=== PATIENT | male | born 1945 | race Caucasian/White ===

== ENCOUNTER 2017-01-25 10:59 | Inpatient (IN) ==
[2017-01-25 13:27] LABS: Basophils # 0.1 10*3/uL (0.0-0.2); Basophils % 0.6 % (0.0-0.8); Eosinophils # 1.3 10*3/uL (0.0-0.87); Eosinophils % 11.8 % (0.00-10.9); Hematocrit 46.1 VOL% (42.0-52.0); Hemoglobin 15.6 GM/DL (14.0-18.0); Immature Granulocytes % 0.3 %; Immature Granulocytes Absolute 0.03 #; Lymphocytes # 2.6 10*3/uL (1.4-4.0); Lymphocytes % 24.4 % (21.2-54.2); Mean Corpuscular HGB Conc 33.8 GM/DL (32-36); Mean Corpuscular Hemoglobin 30 PG (27-34); Mean Corpuscular Volume 89.5 FL (87-102); Monocytes # 0.8 10*3/uL (0.11-0.8); Monocytes % 7.1 % (1.7-12.7); Neutrophils % 55.8 % (38.7-73.9); Platelet Count 244 T/CUMM (130-400); Red Blood Count 5.15 MC/CUMM (3.8-5.5); Red Cell Distribution Width 13.3 % (9.3-17.3); White Blood Count 10.7 T/CUMM (4-12)
--- NOTE | 2017-01-25 13:32 | Hospitalist History & Physical ---
<Peyton Hanks - Last Filed: 01/25/17 13:22> Assessment and Plan - Time spent with patient Time spent with patient: Greater than 30 minutes (1) COPD exacerbation Status: Acute Assessment and plan: Admit 01/25/17 to monitored bed start IV antibiotics start duonebs IV steroids blood culture sputum culture urinalysis Current Visit: Yes (2) Shortness of breath Status: Acute Current Visit: Yes History of Present Illness Chief complaint: shortness of breath History of present illness: Mr. Polanco is a 71 year old white male w/PMHx COPD, Asthma, IA (15 y/ago), A-fib , Thyroid disease presented to [facility] from Lorene Weathers, [facility] for further evaluation of worsening shortness of breath, wheezing, and cough. He reports productive cough of white, yellow tinged sputum. Denies fever, chills, nausea, or vomiting. He reports shortness of breath started and got much worse this weekend. He reports quit smoking 40 years ago, he continues to dip tobacco (1 can per 2 weeks), occasional alcohol intake. He had surgery 2 weeks ago in [place] with Dr Lui for left eye Retina. PCP: Lorene Weathers NP Denture Contour Wire Specialist: Sr Navarro He takes Flu vaccine yearly. He is directly admitted to [address] [place] [address] on monitored bed for further evaluation of shortness of breath. Home medications to be reviewed and reconciliation to follow. Home Medications Medication Instructions Recorded Confirmed Type Aspirin EC Tab 81 mg PO DAILY #30 tablet 08/16/15 01/25/17 Rx Albuterol Sulfate [Proair HFA] 2 puff INH Q6H PRN 01/25/17 01/25/17 History Azelastine HCl [Azelastine 0.15% 1 spray BOTH NARES BID 01/25/17 01/25/17 History Nasal [place]] Cyanocobalamin Tab [Vitamin B12 1,000 mcg PO DAILY 01/25/17 01/25/17 History Tab] Fluticasone Propionate [Flonase 1 spray BOTH NARES BID 01/25/17 01/25/17 History Allergy Relief] Levothyroxine Tab [Synthroid Tab] 25 mcg PO DAILY@0700 01/25/17 01/25/17 History Nitroglycerin [Nitroglycerin SL 0.4 mg SL Q5M PRN 01/25/17 01/25/17 History Tab] Sotalol [Betapace] 80 mg PO BID 01/25/17 01/25/17 History Umeclidinium [place] [Incruse 1 puff INH DAILY 01/25/17 01/25/17 History Ellipta] Allergies Allergy/AdvReac Type Severity Reaction Status Date / Time No Known Allergies Allergy Verified 07/20/16 15:01 Medical,Surgical,& Family Hx - Medical History Cardio: History of: Cardiac Dysrhythmia (2016 diagnosed paroxysmal atrial fibrillation), CAD, Hypertension (Off Meds), IA (15 yrs ago), Cardiovascular Problems (Dr. Navarro) Neurology: No history of: Seizures HEENT: History of: Eye Problem (Cataracts/Glasses (had surgery on Retina (left) 2 weeks ago in [place])), Dental Problems (Full Set Dentures), HEENT Problems ( Sinus Infection Usually Yearly) No history of: Ear Problem Endocrine: History of: Dyslipidemia (Off Meds), Thyroid Disorder (SYNTHROID) Rheumatology: No history of;: Psoriasis, Systemic Lupus Erythematosus Respiratory: No history of: Pneumonia (Hx Pneum Vac), Respiratory Problems (No Flu Vac 2015) Musculoskeletal: History of: Back/Neck Problems, Musculoskeletal Problems (NECK FX 1991-Can't Turn Head Very Far) Hematology: No history of: Blood Transfusion Reaction Other: No history of: Anesthesia Reactions, Anaphylaxis, Cancer, Eczema, HIV, MRSA, Skin Problems - Surgical History Cardiac Surgeries: Sugical HX of: Cardiac Catheterization (3 years ago. "Good" ; Hx Angioplasty) Thoracic Surgeries: Patient denies;: Organ Transplant HEENT Surgeries: Surgical HX of: Tonsilectomy & Adenoidectomy Patient denies: Eye Surgery (cos, cod) Abdominal Surgeries: Surgical HX of: Appendectomy, Colonoscopy, Hernia Repair ( right groin) Patient denies: EGD Orthopedic Surgeries: Surgical HX of;: Orthopedic Surgery, Spinal Surgery ( Fusion C5) Additional Surgical History: He reports surgery on Left retina in [place] by Dr Hoang - Family History Family History: Reports;: Family Cancer (mom lung/ dad lung/ sister lung and throat/ sister lung) Denies;: Family Diabetes, Family Heart Disease, Family Hypertension, Family Psychiatric Problems, Family Stroke - Social History Smoking Status: Former smoker (quite 40 years ago) Frequency of Alcohol Use: Occasionally Type of Drug Use: None Marital Status: Lives With:: Spouse Functional capacity: independent ambulation 12 point system: reviewed and no additional remarkable complaints except as stated - Constitutional Constitutional: Absent: chills, fever(s) - EENT Nose, mouth and throat: Absent: sore throat - Cardiovascular Cardiovascular: Absent: chest pain at rest, chest pain with activity - Respiratory Respiratory: Present: cough, dyspnea, other (sputum: white to yellowish in color ) - Gastrointestinal Gastrointestinal: Absent: nausea, vomiting Exam - Constitutional Vitals: Period Temp Pulse Resp BP Sys/Thao Pulse Ox Last 24 Hr 97.1 F 64 18 145/75 93 General appearance: no acute distress, over weight - Head Head exam: Present: normal inspection - Eye Eye exam: Present: EOMI, other (left eye recent surgery (retina)) Pupils: Present: ROXY - Neck Neck exam: Present: normal inspection - Respiratory Respiratory exam: Present: rhonchi. Absent: wheezes - Cardiovascular Cardiovascular exam: Present: irregular rhythm (chronic afib currently controlled ) - GI/Abdominal GI/Abdominal exam: Present: normal bowel sounds, soft. Absent: rebound - Extremities Exam Extremities exam: Present: normal inspection, full ROM. Absent: edema - Neurological Exam Neurological exam: Present: alert, oriented X3, CN II-XII intact - Psychiatric Psychiatric exam: Present: normal affect, normal mood. Absent: agitated, anxious - Skin Skin exam: Present: normal color, warm, dry Results - Labs Lab Results: I have reviewed the past 24 hour labs Labs: labs ordered upon arrival and waiting for labs to be drawn and resulted - Diagnostic Findings Procedure: Chest x-ray: pending (ordered upon arrival) <Chau Melendez - Last Filed: 01/25/17 16:23> History of Present Illness History of present illness: Mr. Polanco is a 71 year old male who was referred directly to the hospital from his primary healthcare provider's office with an acute exacerbation of chronic obstructive pulmonary disease. He has a previously well known history of COPD. He has had increasing coughing and shortness of breath for several days prior to admission. I have interviewed and examined the patient, and reviewed all the available laboratory and radiographic test results. I agree with the assessment and plans of [employer] [facility]. Mr. Polanco will be admitted to the hospital and begun on albuterol ipratropium nebulizer therapy, intravenous methylprednisolone, and intravenous levofloxacin. Exam - Constitutional Vitals: Period Temp Pulse Resp BP Sys/Thao Pulse Ox Last 24 Hr 97.1 F 64-81 18-22 145/75 93-97 Results - Labs CBC & BMP: 01/25/17 13:06 01/25/17 13:06
[2017-01-25 13:58] LABS: Eosinophils 8 % (0-10); Hypochromasia 1+; Lymphocytes 30 % (20-55); Platelet Estimate Adequate; Segmented Neutrophils 53 % (50-85); Total Cells Counted 100
[2017-01-25 14:02] LABS: Albumin 4.2 G/DL (3.4-5.0); Bilirubin,Total 0.8 MG/DL (0.2-1.0); Calcium 9.2 MG/DL (8.5-10.1); Osmolality,Calculated 275.5 MOS/KG (273-304); Potassium 4.3 MMOL/L (3.5-5.1); Total Protein 7.2 G/DL (6.4-8.3)
[2017-01-25] MEDS: methylPREDNISolone SOD SUC 40 MG/1 ML VIAL IV SCH ×2 (14:05→20:56)
[2017-01-25] MEDS: LEVOFLOXACIN INJ 750 MG in PREMIX 1 EACH IV SCH (14:11)
[2017-01-25] MEDS: ALBUTEROL/IPRATROPIUM 3 ML NEB RESP TX PRN ×2 (14:19→21:08)
[2017-01-25 16:50] LABS: Apearance,Urine Slightly Hazy (Clear); Bilirubin,Urine Negative (Negative); Blood, Urine Negative (Negative); Glucose,Urine (UA) Negative (Negative); Ketones,Urine Negative (Negative); Mucus,Urine Occasional /LPF (Occasional); Nitrite,Urine Negative (Negative); Protein,Urine 30 MG/DL; RBC,Urine 2 /HPF (0-4); Squamous Epithelial Cell,Urine Occasional /HPF (0-10); Urine Color Yellow (Yellow); Urine Specific Gravity 1.018 (1.001-1.035); Urine Urobilinogen < 2.0 EU/DL (0.2-1.0); WBC,Urine 1 /HPF (0-6)
--- NOTE | 2017-01-25 17:08 | XRay Report ---
2 view chest 01/25/2017 11:51 AM Indication: Shortness of breath Comparison: August 13, 2015 Findings: Cardiomediastinal contours are stable. Lungs are clear bilaterally. . No acute osseous abnormalities. Visualized upper abdomen demonstrates no acute pathology. Impression: No acute cardiopulmonary findings PROCEDURE INTERPRETED AT [facility] DEPARTMENT OF RADIOLOGY Final Report Signed by: Hoang Slaughter
[2017-01-26] MEDS: methylPREDNISolone SOD SUC 40 MG/1 ML VIAL IV SCH ×3 (04:14→21:28)
--- NOTE | 2017-01-26 08:32 | Hospitalist Progress Note ---
Assessment and Plan (1) COPD exacerbation Status: Acute Assessment and plan: As noted above, he is presently being treated with intravenous methylprednisolone, intravenous levofloxacin, and albuterol nebulizer therapy. I will continue these medications. Current Visit: Yes Hospitalist: Subjective Interval history: Mr. Polanco was admitted to the hospital yesterday with acute exacerbation of chronic obstructive pulmonary disease. He is presently being treated with intravenous methylprednisolone, intravenous levofloxacin, and albuterol ipratropium nebulizer therapy. He states that he is mildly improved since yesterday. Exam - Constitutional Vitals: Period Temp Pulse Resp BP Sys/Thao Pulse Ox Last 24 Hr 97.1 F-98.2 F 64-82 14-22 128-154/75-90 75-98 General appearance: no acute distress - Head Head exam: Present: normal inspection - Neck Neck exam: Present: normal inspection - Respiratory Respiratory exam: Present: clear to auscultation bilaterally - Cardiovascular Cardiovascular exam: Present: regular rate and rhythm - GI/Abdominal GI/Abdominal exam: Present: normal bowel sounds, soft, other (Nontender with no palpable masses or hepatosplenomegaly.) - Extremities Exam Extremities exam: Present: normal inspection - Neurological Exam Neurological exam: Present: alert, oriented X3 - Skin Skin exam: Present: normal color, warm, intact Results - Labs CBC & BMP: 01/25/17 13:06 01/25/17 13:06 Specialty Discharge - Follow Up or Referrals
[2017-01-26] MEDS: ALBUTEROL/IPRATROPIUM 3 ML NEB RESP TX PRN ×2 (10:58→20:14)
[2017-01-26] MEDS: LEVOFLOXACIN INJ 750 MG in PREMIX 1 EACH IV SCH (14:00)
[2017-01-27] MEDS: methylPREDNISolone SOD SUC 40 MG/1 ML VIAL IV SCH ×3 (05:01→20:52)
[2017-01-27 06:12] LABS: Basophils % 0.1 % (0.0-0.8); Calcium 8.9 MG/DL (8.5-10.1); Hematocrit 41.9 VOL% (42.0-52.0); Hemoglobin 14.3 GM/DL (14.0-18.0); Immature Granulocytes % 0.8 %; Immature Granulocytes Absolute 0.15 #; Lymphocytes % 9.9 % (21.2-54.2); Magnesium 2.4 MG/DL (1.8-2.4); Mean Corpuscular HGB Conc 34.1 GM/DL (32-36); Mean Corpuscular Hemoglobin 31 PG (27-34); Mean Corpuscular Volume 89.9 FL (87-102); Mean Platelet Volume 11.4 FL (9.6-12.0); Monocytes # 0.7 10*3/uL (0.11-0.8); Monocytes % 3.6 % (1.7-12.7); Neutrophils % 85.6 % (38.7-73.9); Osmolality,Calculated 283.4 MOS/KG (273-304); Platelet Count 261 T/CUMM (130-400); Potassium 4.3 MMOL/L (3.5-5.1); Red Blood Count 4.66 MC/CUMM (3.8-5.5); Red Cell Distribution Width 13.4 % (9.3-17.3); White Blood Count 19.9 T/CUMM (4-12)
[2017-01-27] MEDS: ALBUTEROL/IPRATROPIUM 3 ML NEB RESP TX PRN ×3 (08:06→19:40)
[2017-01-27] MEDS: LEVOFLOXACIN INJ 750 MG in PREMIX 1 EACH IV SCH (09:10)
--- NOTE | 2017-01-27 11:12 | Hospitalist Progress Note ---
Assessment and Plan (1) COPD exacerbation Status: Acute Assessment and plan: As noted above, he is presently being treated with intravenous methylprednisolone, intravenous levofloxacin, and albuterol nebulizer therapy. I will continue these medications. He appears to be slowly improving. Current Visit: Yes Hospitalist: Subjective Interval history: Mr. Polanco was admitted to the hospital 2 days ago with acute exacerbation of chronic obstructive pulmonary disease. He is presently being treated with intravenous methylprednisolone, intravenous levofloxacin, and albuterol ipratropium nebulizer therapy. He states that he is mildly improved since yesterday, although he continues to have a significant amount of coughing and some shortness of breath. Exam - Constitutional Vitals: Period Temp Pulse Resp BP Sys/Thao Pulse Ox Last 24 Hr 97.1 F-98.3 F 59-87 18-20 131-138/75-82 93-98 General appearance: no acute distress - Head Head exam: Present: normal inspection - Neck Neck exam: Present: normal inspection - Respiratory Respiratory exam: Present: other (Scattered rhonchi and wheezes.) - Cardiovascular Cardiovascular exam: Present: regular rate and rhythm - GI/Abdominal GI/Abdominal exam: Present: normal bowel sounds, soft, other (Nontender with no palpable masses or hepatosplenomegaly.) - Extremities Exam Extremities exam: Present: normal inspection - Skin Skin exam: Present: normal color, warm, intact Results - Labs CBC & BMP: 01/27/17 05:14 01/27/17 05:14 Specialty Discharge - Follow Up or Referrals
--- NOTE | 2017-01-27 14:01 | Pulmonology Consult Note ---
Assessment and Plan (1) COPD exacerbation Status: Acute Assessment and plan: The patient comes in with wheezing and coughing and this may be more asthmatic bronchitis and COPD. It certainly sounds like he has a significant reversible component. He has never been treated that much for lung problems. Will continue steroids and bronchodilators and check PFTs later. Current Visit: Yes (2) Hypothyroidism Status: Chronic Assessment and plan: He will continue present therapy Current Visit: No Qualifiers: Hypothyroidism type: unspecified Qualified Code(s): E03.9 - Hypothyroidism , unspecified (3) Hypertension Status: Suspected Assessment and plan: His blood pressure heart rate are under control. Current Visit: No (4) Coronary artery disease Status: Chronic Assessment and plan: His coronary artery disease is apparently fairly minor. Current Visit: No Qualifiers: Coronary Disease-Associated Artery/Lesion type: [place] artery [place] vs. transplanted heart: [place] heart Associated angina: with unstable angina Qualified Code(s): I25.110 - Atherosclerotic heart disease of [place] coronary artery with unstable angina pectoris History of Present Illness Chief complaint: Shortness of breath History of present illness: Mr. Polanco is a 71 year old white male that comes in with several days of coughing and some sputum production and was having more shortness of breath. He has had some some difficulties with his breathing off and on the last several weeks. Before that he never really had much trouble with his breathing. He was told years ago he might have some asthma. He smoked for about 10 years at most and quit over 40 years ago. He has been told that he might have some COPD. He comes in now with some chest tightness and wheezing and is felt to be having a mild exacerbation. He is feeling a little better today. He has not used anything very regularly for his breathing. Last year he had a negative cardiac catheterization. He does not know when he has had breathing test in the past. Home Medications Medication Instructions Recorded Confirmed Type Aspirin EC Tab 81 mg PO DAILY #30 tablet 08/16/15 01/25/17 Rx Albuterol Sulfate [Proair HFA] 2 puff INH Q6H PRN 01/25/17 01/25/17 History Azelastine HCl [Azelastine 0.15% 1 spray BOTH NARES BID 01/25/17 01/25/17 History Nasal [place]] Cyanocobalamin Tab [Vitamin B12 1,000 mcg PO DAILY 01/25/17 01/25/17 History Tab] Fluticasone Propionate [Flonase 1 spray BOTH NARES BID 01/25/17 01/25/17 History Allergy Relief] Levothyroxine Tab [Synthroid Tab] 25 mcg PO DAILY@0700 01/25/17 01/25/17 History Nitroglycerin [Nitroglycerin SL 0.4 mg SL Q5M PRN 01/25/17 01/25/17 History Tab] Sotalol [Betapace] 80 mg PO BID 01/25/17 01/25/17 History Umeclidinium [place] [Incruse 1 puff INH DAILY 01/25/17 01/25/17 History Ellipta] Allergies Allergy/AdvReac Type Severity Reaction Status Date / Time No Known Allergies Allergy Verified 07/20/16 15:01 - Constitutional Constitutional: Present: fatigue. Absent: chills, fever(s), weight loss - EENT Eyes: Absent: loss of vision Ears: Absent: decreased hearing Nose, mouth and throat: Present: nasal congestion. Absent: dysphagia, headache( s), sinus pressure - Cardiovascular Cardiovascular: Present: dyspnea. Absent: chest pain at rest, chest pain with activity, edema, palpitations - Respiratory Respiratory: Present: cough, dyspnea, wheezing, change in phlegm color. Absent : hemoptysis - Gastrointestinal Gastrointestinal: Absent: abdominal pain, change in bowel habits, dysphagia, nausea, vomiting - Genitourinary Genitourinary: Absent: difficulty urinating, dysuria, hematuria, urinary frequency - Musculoskeletal Musculoskeletal: Present: back pain. Absent: arthralgias, muscle weakness - Neurological Neurological: Absent: abnormal speech, focal weakness, paresthesias - Psychiatric Psychiatric: Absent: anxiety Exam (Pulmonay) H&P - Constitutional Vitals: Period Temp Pulse Resp BP Sys/Thao Pulse Ox Last 24 Hr 97.2 F-98.3 F 59-87 18-20 131-138/75-82 93-98 General appearance: normal weight, no acute distress - Head Head exam: Present: normal inspection, normocephalic - Eye Eye exam: Present: EOMI. Absent: scleral icterus - ENT ENT exam: Present: normal exam - Neck Neck exam: Present: normal inspection. Absent: lymphadenopathy, thyromegaly - Respiratory Respiratory exam: Present: rhonchi, wheezes. Absent: accessory muscle use - Cardiovascular Cardiovascular exam: Present: regular rate and rhythm. Absent: gallop, systolic murmur - GI/Abdominal GI/Abdominal exam: Present: normal bowel sounds, soft. Absent: organomegaly, tenderness - Extremities Exam Extremities exam: Absent: calf tenderness, edema - Back Exam Back exam: Present: other (He does have a very straight back) - Neurological Exam Neurological exam: Present: alert, oriented X3, CN II-XII intact. Absent: motor sensory deficit - Psychiatric Psychiatric exam: Present: normal affect - Skin Skin exam: Present: warm, dry Medical,Surgical,& Family Hx - Medical History Cardio: History of: Cardiac Dysrhythmia (2016 diagnosed paroxysmal atrial fibrillation), CAD, Hypertension (Off Meds), [place] (15 yrs ago), Cardiovascular Problems (Dr. Navarro) Neurology: No history of: Seizures HEENT: History of: Eye Problem (Cataracts/Glasses (had surgery on Retina (left) 2 weeks ago in [place])), Dental Problems (Full Set Dentures), HEENT Problems ( Sinus Infection Usually Yearly) No history of: Ear Problem Endocrine: History of: Dyslipidemia (Off Meds), Thyroid Disorder (SYNTHROID) Rheumatology: No history of;: Psoriasis, Systemic Lupus Erythematosus Respiratory: No history of: Pneumonia (Hx Pneum Vac), Respiratory Problems (No Flu Vac 2015) Musculoskeletal: History of: Back/Neck Problems, Musculoskeletal Problems (NECK FX 1991-Can't Turn Head Very Far) Hematology: No history of: Blood Transfusion Reaction Other: No history of: Anesthesia Reactions, Anaphylaxis, Cancer, Eczema, HIV, MRSA, Skin Problems - Surgical History Cardiac Surgeries: Sugical HX of: Cardiac Catheterization (3 years ago. "Good" ; Hx Angioplasty) Thoracic Surgeries: Patient denies;: Organ Transplant HEENT Surgeries: Surgical HX of: Tonsilectomy & Adenoidectomy Patient denies: Eye Surgery (cos, cod) Abdominal Surgeries: Surgical HX of: Appendectomy, Colonoscopy, Hernia Repair ( right groin) Patient denies: EGD Orthopedic Surgeries: Surgical HX of;: Orthopedic Surgery, Spinal Surgery ( Fusion C5) - Family History Family History: Reports;: Family Cancer (mom lung/ dad lung/ sister lung and throat/ sister lung) Denies;: Family Diabetes, Family Heart Disease, Family Hypertension, Family Psychiatric Problems, Family Stroke - Social History Smoking Status: Former smoker (quite 40 years ago) Frequency of Alcohol Use: Occasionally Type of Drug Use: None Results - Labs CBC & BMP: 01/27/17 05:14 01/27/17 05:14 - Diagnostic Findings Procedure: Chest x-ray: image reviewed by me, report reviewed by me (His chest x -ray does suggest chronic lung disease with no definite infiltrate.) Specialty Discharge - Follow Up or Referrals
[2017-01-27] MEDS ORDERED: NITROGLYCERIN SL 0.4 MG TABLET SL PRN (14:06)
[2017-01-27] MEDS: FLONASE 50 MCG BOTH NARES SCH (20:51)
[2017-01-27] MEDS: AZELASTINE NASAL 137 MCG/SPRAY 30 ML BOTTLE BOTH NARES SCH (20:51)
[2017-01-27] MEDS: SOTALOL 80 MG TABLET PO SCH (20:52)
[2017-01-28] MEDS: ALBUTEROL/IPRATROPIUM 3 ML NEB RESP TX PRN ×4 (00:40→19:11)
[2017-01-28] MEDS: methylPREDNISolone SOD SUC 40 MG/1 ML VIAL IV SCH ×3 (05:46→20:23)
[2017-01-28] MEDS: LEVOTHYROXINE 25 MCG TABLET PO SCH (06:13)
[2017-01-28] MEDS: LEVOFLOXACIN INJ 750 MG in PREMIX 1 EACH IV SCH (08:47)
[2017-01-28] MEDS: CYANOCOBALAMIN 500 MCG TABLET PO SCH (08:52)
[2017-01-28] MEDS: ASPIRIN EC 81 MG TABLET PO SCH (08:53)
[2017-01-28] MEDS: FLONASE 50 MCG BOTH NARES SCH ×2 (08:57→21:00)
[2017-01-28] MEDS: SOTALOL 80 MG TABLET PO SCH (08:57)
[2017-01-28] MEDS: AZELASTINE NASAL 137 MCG/SPRAY 30 ML BOTTLE BOTH NARES SCH ×2 (09:01→21:00)
--- NOTE | 2017-01-28 09:05 | Hospitalist Progress Note ---
Assessment and Plan (1) COPD exacerbation Status: Acute Assessment and plan: As noted above, he is presently being treated with intravenous methylprednisolone, intravenous levofloxacin, and albuterol nebulizer therapy. I will continue these medications. He appears to be slowly improving. Current Visit: Yes Hospitalist: Subjective Interval history: Patient continues to experience wheezing, shortness of breath, and coughing. He feels as if he is slowly improving. He was seen in consultation yesterday by Dr. Ness of pulmonary who confirmed his present treatment regimen. Exam - Constitutional Vitals: Period Temp Pulse Resp BP Sys/Thao Pulse Ox Last 24 Hr 96.7 F-98.5 F 65-88 18-20 125-141/72-88 91-98 General appearance: no acute distress - Head Head exam: Present: normal inspection - Neck Neck exam: Present: normal inspection - Respiratory Respiratory exam: Present: other (Scattered rhonchi.) - Cardiovascular Cardiovascular exam: Present: regular rate and rhythm - GI/Abdominal GI/Abdominal exam: Present: normal bowel sounds, soft, other (Nontender with no palpable masses or hepatosplenomegaly.) - Extremities Exam Extremities exam: Present: normal inspection - Skin Skin exam: Present: normal color, warm, intact Results - Labs CBC & BMP: 01/27/17 05:14 01/27/17 05:14 Specialty Discharge - Follow Up or Referrals
--- NOTE | 2017-01-28 13:17 | Pulmonology Progress Note ---
Pulmonary - PN: Subj Interval history: The patient is a 71-year-old came in with a mild exacerbation of his chronic lung disease. He does cough and wheeze and he says he is feeling better today. He says he is tolerating treatments and is walking around some. He still has a little bit of sputum production. Overall he says he is doing okay. His chest x-ray does look like severe lung disease but his clinical picture suggest mainly asthma. He is fairly stable at present. Exam (Progress Note) - Constitutional Vitals: Period Temp Pulse Resp BP Sys/Thao Pulse Ox Last 24 Hr 96.7 F-98.5 F 65-88 18-20 125-141/70-88 91-98 Exam: General appearance: normal weight, no acute distress, he looks comfortable in bed and in no distress. - Head Head exam: Present: normal inspection, normocephalic - Eye Eye exam: Present: EOMI. Absent: scleral icterus - ENT ENT exam: Present: normal exam - Neck Neck exam: Present: normal inspection. Absent: lymphadenopathy, thyromegaly - Respiratory Respiratory exam: Present: He has somewhat distant breath sounds but is moving air okay with less wheezing. - Cardiovascular Cardiovascular exam: Present: regular rate and rhythm. Absent: gallop, systolic murmur - GI/Abdominal GI/Abdominal exam: Present: normal bowel sounds, soft. Absent: organomegaly, tenderness - Extremities Exam Extremities exam: Absent: calf tenderness, edema - Back Exam Back exam: Present: other (He does have a very straight back) - Neurological Exam Neurological exam: Present: alert, oriented X3, CN II-XII intact. Absent: motor sensory deficit - Psychiatric Psychiatric exam: Present: normal affect - Skin Skin exam: Present: warm, dry Results - Labs CBC & BMP: 01/27/17 05:14 01/27/17 05:14 Assessment and Plan (1) COPD exacerbation Status: Acute Assessment and plan: The patient comes in with wheezing and coughing and this may be more asthmatic bronchitis than COPD. It certainly sounds like he has a significant reversible component. He has never been treated that much for lung problems. Will continue steroids and bronchodilators . When he has better, will have him come back to the clinic and get PFTs. He will likely need to be on some maintenance inhalers. Current Visit: Yes (2) Hypothyroidism Status: Chronic Assessment and plan: He will continue present therapy Current Visit: No Qualifiers: Hypothyroidism type: unspecified Qualified Code(s): E03.9 - Hypothyroidism , unspecified (3) Hypertension Status: Suspected Assessment and plan: His blood pressure heart rate are under control. Current Visit: No (4) Coronary artery disease Status: Chronic Assessment and plan: His coronary artery disease is apparently fairly minor. He does not have any angina. Current Visit: No Qualifiers: Coronary Disease-Associated Artery/Lesion type: [place] artery [place] vs. transplanted heart: [place] heart Associated angina: with unstable angina Qualified Code(s): I25.110 - Atherosclerotic heart disease of [place] coronary artery with unstable angina pectoris Specialty Discharge - Follow Up or Referrals
[2017-01-29] MEDS: ALBUTEROL/IPRATROPIUM 3 ML NEB RESP TX PRN (00:43)
[2017-01-29] MEDS: methylPREDNISolone SOD SUC 40 MG/1 ML VIAL IV SCH (05:58)
[2017-01-29] MEDS: LEVOTHYROXINE 25 MCG TABLET PO SCH ×2 (05:58→06:30)
--- NOTE | 2017-01-29 08:59 | Pulmonology Progress Note ---
Pulmonary - PN: Subj Interval history: The patient is a 71-year-old came in with a mild exacerbation of his chronic lung disease. He does cough and wheeze and he says he is feeling better today. He says he is tolerating treatments and is walking around some. He said he had a fairly good night and feels much better today. His sputum production has decreased and his wheezing has resolved. Overall he is feeling much better. Exam (Progress Note) - Constitutional Vitals: Period Temp Pulse Resp BP Sys/Thao Pulse Ox Last 24 Hr 96.5 F-98.1 F 67-96 16-20 124-155/69-87 92-99 Exam: General appearance: normal weight, no acute distress, he looks comfortable in bed and in no distress. - Head Head exam: Present: normal inspection, normocephalic - Eye Eye exam: Present: EOMI. Absent: scleral icterus - ENT ENT exam: Present: normal exam - Neck Neck exam: Present: normal inspection. Absent: lymphadenopathy, thyromegaly - Respiratory Respiratory exam: Present: His lungs sound much clear with no wheezing now. - Cardiovascular Cardiovascular exam: Present: regular rate and rhythm. Absent: gallop, systolic murmur - GI/Abdominal GI/Abdominal exam: Present: normal bowel sounds, soft. Absent: organomegaly, tenderness - Extremities Exam Extremities exam: Absent: calf tenderness, edema - Back Exam Back exam: Present: other (He does have a very straight back) - Neurological Exam Neurological exam: Present: alert, oriented X3, CN II-XII intact. Absent: motor sensory deficit - Psychiatric Psychiatric exam: Present: normal affect - Skin Skin exam: Present: warm, dry Results - Labs CBC & BMP: 01/27/17 05:14 01/27/17 05:14 Assessment and Plan (1) COPD exacerbation Status: Acute Assessment and plan: The patient comes in with wheezing and coughing and this may be more asthmatic bronchitis than COPD. It certainly sounds like he has a significant reversible component. He has never been treated that much for lung problems. Will continue steroids and bronchodilators . When he has better, will have him come back to the clinic and get PFTs. We will start him on Symbicort for now. Current Visit: Yes (2) Hypothyroidism Status: Chronic Assessment and plan: He will continue present therapy Current Visit: No Qualifiers: Hypothyroidism type: unspecified Qualified Code(s): E03.9 - Hypothyroidism , unspecified (3) Hypertension Status: Suspected Assessment and plan: His blood pressure heart rate are under control. Current Visit: No (4) Coronary artery disease Status: Chronic Assessment and plan: His coronary artery disease is apparently fairly minor. He does not have any angina. Current Visit: No Qualifiers: Coronary Disease-Associated Artery/Lesion type: [place] artery [place] vs. transplanted heart: [place] heart Associated angina: with unstable angina Qualified Code(s): I25.110 - Atherosclerotic heart disease of [place] coronary artery with unstable angina pectoris Specialty Discharge - Follow Up or Referrals
[2017-01-29] MEDS: LEVOFLOXACIN INJ 750 MG in PREMIX 1 EACH IV SCH (09:36)
[2017-01-29] MEDS: AZELASTINE NASAL 137 MCG/SPRAY 30 ML BOTTLE BOTH NARES SCH ×2 (09:38→20:34)
[2017-01-29] MEDS: FLONASE 50 MCG BOTH NARES SCH ×2 (09:38→20:34)
[2017-01-29] MEDS: ASPIRIN EC 81 MG TABLET PO SCH (09:39)
[2017-01-29] MEDS: SOTALOL 80 MG TABLET PO SCH (09:39)
[2017-01-29] MEDS: CYANOCOBALAMIN 500 MCG TABLET PO SCH (09:39)
[2017-01-29] MEDS: predniSONE 20 MG TABLET PO SCH (09:42)
[2017-01-29] MEDS: BUDESONIDE/FORMOTEROL 160-4.5 INHALER 6 GM INH SCH ×2 (09:42→20:35)
--- NOTE | 2017-01-29 09:58 | Hospitalist Progress Note ---
Assessment and Plan (1) COPD exacerbation Status: Acute Assessment and plan: As noted above, he is presently being treated with intravenous methylprednisolone, intravenous levofloxacin, and albuterol nebulizer therapy. I will continue these medications. He appears to be slowly improving. He should be ready for discharge tomorrow. Current Visit: Yes Hospitalist: Subjective Interval history: Patient is doing significantly better. He is experiencing much less wheezing and coughing. He continues on his present medications. He should be ready for discharge tomorrow. Exam - Constitutional Vitals: Period Temp Pulse Resp BP Sys/Thao Pulse Ox Last 24 Hr 96.5 F-98.1 F 67-96 16-20 124-155/69-87 92-99 General appearance: no acute distress - Head Head exam: Present: normal inspection - Neck Neck exam: Present: normal inspection - Respiratory Respiratory exam: Present: clear to auscultation bilaterally - Cardiovascular Cardiovascular exam: Present: regular rate and rhythm - GI/Abdominal GI/Abdominal exam: Present: normal bowel sounds, soft, other (Nontender with no palpable masses or hepatosplenomegaly.) - Extremities Exam Extremities exam: Present: normal inspection - Skin Skin exam: Present: normal color, warm, intact Results - Labs CBC & BMP: 01/27/17 05:14 01/27/17 05:14 Specialty Discharge - Follow Up or Referrals
[2017-01-30] MEDS: LEVOTHYROXINE 25 MCG TABLET PO SCH (06:59)
[2017-01-30 08:20] VITALS: BP 145/81
[2017-01-30] MEDS: predniSONE 20 MG TABLET PO SCH (09:36)
[2017-01-30] MEDS: SOTALOL 80 MG TABLET PO SCH (09:36)
[2017-01-30] MEDS: CYANOCOBALAMIN 500 MCG TABLET PO SCH (09:36)
[2017-01-30] MEDS: FLONASE 50 MCG BOTH NARES SCH (09:37)
[2017-01-30] MEDS: AZELASTINE NASAL 137 MCG/SPRAY 30 ML BOTTLE BOTH NARES SCH (09:37)
[2017-01-30] MEDS: LEVOFLOXACIN INJ 750 MG in PREMIX 1 EACH IV SCH (09:37)
[2017-01-30] MEDS: BUDESONIDE/FORMOTEROL 160-4.5 INHALER 6 GM INH SCH (09:37)
[2017-01-30] MEDS: ASPIRIN EC 81 MG TABLET PO SCH (09:41)
--- NOTE | 2017-01-30 09:59 | Discharge Summary ---
Hospital Course - Hospital Course Hospital Course: History of present illness: Mr. Polanco is a 71 year old white male w/PMHx COPD, Asthma, [place] (15 y/ago), A-fib , Thyroid disease presented to [facility] from [facility] for further evaluation of worsening shortness of breath, wheezing, and cough. He reports productive cough of white, yellow tinged sputum. Denies fever, chills, nausea, or vomiting. He reports shortness of breath started and got much worse this weekend. He reports quit smoking 40 years ago, he continues to dip tobacco (1 can per 2 weeks), occasional alcohol intake. He had surgery 2 weeks ago in [place] with Dr Lui for left eye Retina. The patient was admitted to the hospital with acute exacerbation of chronic obstructive pulmonary disease. He was seen in consultation by Dr. Anup Ness of pulmonary. Patient was treated in the hospital with intravenous methylprednisolone, intravenous levofloxacin, albuterol ipratropium nebulizer therapy, and Symbicort. He improved significantly during his hospitalization such that at the time of discharge she was comfortable with no complaints. Diagnosis - Discharge Diagnosis (1) COPD exacerbation Status: Acute Specialty Discharge - Follow Up or Referrals Discharge Plan - Discharge Data Disposition: Disch To Home/Self Care Condition at Discharge: Stable Discharge Diet: advance to your usual diet Activity: resume usual activities as tolerated - Discharge Medications New predniSONE TAB [PredniSONE] 10 mg PO DAILY #7 tablet Fluticasone/Salmeterol 250-50 [Advair 250-50] 1 puff INH BID #1 inhaler Continue Aspirin EC Tab 81 mg PO DAILY #30 tablet Cyanocobalamin Tab [Vitamin B12 Tab] 1,000 mcg PO DAILY Sotalol [Betapace] 80 mg PO BID Nitroglycerin [Nitroglycerin SL Tab] 0.4 mg SL Q5M PRN PRN Reason: Chest Pain Albuterol Sulfate [Proair HFA] 2 puff INH Q6H PRN PRN Reason: Shortness Of Breath/Wheezing Fluticasone Propionate [Flonase Allergy Relief] 1 spray BOTH NARES BID Azelastine HCl [Azelastine 0.15% Nasal Myra] 1 spray BOTH NARES BID Levothyroxine Tab [Synthroid Tab] 25 mcg PO DAILY@0700 Umeclidinium [place] [Incruse Ellipta] 1 puff INH DAILY - Follow Up or Referral - Forms/Instructions Instructions: Chronic Obstructive Pulmonary Disease (GEN), COPD, [employer] (GEN) Exam - Constitutional Vitals: Period Temp Pulse Resp BP Sys/Thao Pulse Ox Last 24 Hr 97.0 F-97.7 F 55-85 18-20 125-165/73-87 92-95 Discharge Results Procedures and tests throughout hospitalization: Pending Orders 01/25/17 13:06 Blood Culture Stat Labs on day of discharge: Preliminary micro results at discharge 01/25/17 13:06 Blood Culture - Preliminary Blood No growth at 3 days 01/25/17 13:06 Blood Culture - Preliminary Blood No growth at 3 days DS: Provider Date of admission: 01/27/17 15:07 Primary care physician: Armani Lieberman Attending physician on admission: Chau Melendez Consults: 01/25/17 11:49 Consult to Pulmonary Rehabilitation [CONS] Routine Reason for Pulmonary Rehabilitation: COPD 01/26/17 08:54 Consult to Physician [CONS] Routine Comment: sob copd Consulting Provider: Anup Ness Person Notified: KOKI Date Notified: 01/27/17 Time Notified: 08:54 Discharging clinician: Chau Melendez
--- NOTE | 2017-01-30 11:16 | Pulmonology Progress Note ---
Pulmonary - PN: Subj Interval history: Patient improved with antibiotics and bronchodilators. Plans are for discharge today. Dr. Ness plans to follow him in the clinic. Exam (Progress Note) - Constitutional Vitals: Period Temp Pulse Resp BP Sys/Thao Pulse Ox Last 24 Hr 97.0 F-97.7 F 55-85 18-20 125-165/73-87 92-95 Exam: Patient's alert oriented vital signs normal. Pupils react to light. Throat is clear. Neck supple no bruits. Chest reveals prolonged expiratory phase and a few scattered rhonchi. Heart normal rate rhythm no murmurs. Abdomen soft nontender no masses. Extremities no clubbing cyanosis or edema. Calves nontender. Results - Labs CBC & BMP: 01/27/17 05:14 01/27/17 05:14 Lab Results: I have reviewed the past 24 hour labs Assessment and Plan (1) COPD exacerbation Status: Acute Assessment and plan: Agree with plans for discharge. Dr. Brian Ness plans to follow him post discharge from a COPD standpoint. Current Visit: Yes Specialty Discharge - Follow Up or Referrals
--- NOTE | 2017-02-04 08:46 | Physician Query Form ---
CLICK EDIT DOCUMENT TO SELECT QUERY ANSWER --> OK --> SIGN Franchesca Valenzuela RN Clinical Web Systems Developer W) [phone] (f) [phone] [email or web address]: Make your selection(s) from the choices in EACH section by typing an "x" and enter comments in the comment section. Please use your independent medical judgment in providing your response. This request does not imply that any particular answer is desired or expected. CLINICAL INDICATORS: (Providers should not edit this section) Based on documentation of "evaluation of worsening shortness of breath, wheezing , and cough" history of asthma. " treated in the hospital with intravenous methylprednisolone, intravenous levofloxacin, albuterol ipratropium nebulizer therapy, and Symbicort." Based on documentation of Asthma, can you please provide further specificity regarding the diagnosis? ( x) Mild intermittent extrinsic asthma with acute exacerbation ( ) Mild persistent extrinsic asthma with acute exacerbation ( ) Moderate persistent extrinsic asthma with acute exacerbation ( ) Severe persistent extrinsic asthma with acute exacerbation ( ) Mild intermittent extrinsic asthma with status asthmaticus ( ) Mild persistent extrinsic asthma with status asthmaticus ( ) Moderate persistent extrinsic asthma with status asthmaticus ( ) Severe intermittent extrinsic asthma with status asthmaticus ( x) Other, please specify: ( ) Clinically unable to determine COMMENTS: Acute on Chronic COPD exacerbation with SOB wheezing and cough PLEASE ALSO DOCUMENT RESPONSE IN PROGRESS NOTES AND/OR DISCHARGE SUMMARY Use of terms such as suspected, likely, or probable (associated with a specific diagnosis that is being evaluated, monitored, or treated as if it exists) are acceptable and can be restated in the discharge summary if not ruled out. MTDD
== END 2017-01-30 11:26 | disposition home or self-care (01) | DRG 191 ==
LOC: N.2E

== ENCOUNTER 2018-02-03 11:52 | Observation (INO) ==
[2018-02-03] MEDS ORDERED: DILTIAZEM 50 MG/10 ML VIAL IV STA (12:17)
[2018-02-03] MEDS ORDERED: MAGNESIUM SULF RIDER 2 GM in PREMIX 1 EACH IV STA (12:17)
[2018-02-03] MEDS ORDERED: SODIUM CHLORIDE 0.9% 500 ML IV STA ×3 (12:17→14:40)
[2018-02-03 12:31] LABS: Basophils # 0.1 10*3/uL (0.0-0.2); Basophils % 0.5 % (0.0-0.8); Eosinophils # 0.5 10*3/uL (0.0-0.87); Eosinophils % 4.3 % (0.00-10.9); Hematocrit 46.2 VOL% (42.0-52.0); Hemoglobin 15.5 GM/DL (14.0-18.0); Immature Granulocytes % 0.5 %; Immature Granulocytes Absolute 0.06 #; Lymphocytes % 26.6 % (21.2-54.2); Mean Corpuscular HGB Conc 33.5 GM/DL (32-36); Mean Corpuscular Hemoglobin 30 PG (27-34); Mean Corpuscular Volume 89.5 FL (87-102); Mean Platelet Volume 10.9 FL (9.6-12.0); Monocytes # 0.8 10*3/uL (0.11-0.8); Monocytes % 7.4 % (1.7-12.7); Neutrophils # 6.8 10*3/uL (1.4-7.4); Neutrophils % 60.7 % (38.7-73.9); Platelet Count 285 T/CUMM (130-400); Red Blood Count 5.16 MC/CUMM (3.8-5.5); Red Cell Distribution Width 13.3 % (9.3-17.3); White Blood Count 11.1 T/CUMM (4-12)
[2018-02-03 12:41] LABS: PT Patient Result 10.5 SECS; Partial Thromboplastin Time 27.9 SECS (0-40)
[2018-02-03 12:58] LABS: Albumin 3.8 G/DL (3.4-5.0); Bilirubin,Total 1.1 MG/DL (0.2-1.0); Calcium 8.9 MG/DL (8.5-10.1); Total Protein 6.8 G/DL (6.4-8.3)
[2018-02-03 12:59] LABS: Osmolality,Calculated 284.1 MOS/KG (273-304); Potassium 3.8 MMOL/L (3.5-5.1); Thyroid Stimulating Hormone 3.41 uIU/ml (0.358-3.74)
[2018-02-03] MEDS ORDERED: BISACODYL 5 MG TABLET PO PRN (13:08)
[2018-02-03] MEDS ORDERED: MAGNESIUM SULF RIDER 4 GM in PREMIX 1 EACH IV PRN (13:08)
[2018-02-03] MEDS ORDERED: ACETAMINOPHEN 325 MG TABLET PO PRN (13:08)
[2018-02-03] MEDS ORDERED: DOCUSATE SODIUM 100 MG CAPSULE PO PRN (13:08)
[2018-02-03] MEDS ORDERED: POTASSIUM CHLORIDE 20 MEQ TABLET PO PRN (13:08)
[2018-02-03] MEDS ORDERED: MAGNESIUM SULF RIDER 2 GM in PREMIX 1 EACH IV PRN (13:08)
[2018-02-03] MEDS ORDERED: ONDANSETRON 4 MG/2 ML VIAL IV PRN (13:08)
[2018-02-03] MEDS ORDERED: ZALEPLON 5 MG CAPSULE PO PRN (13:08)
[2018-02-03] MEDS ORDERED: guaiFENesin/DM ER 600-30 MG TABLET PO PRN (13:08)
[2018-02-03] MEDS ORDERED: diphenhydrAMINE CAP 25 MG CAPSULE PO PRN (13:08)
[2018-02-03] MEDS ORDERED: ENOXAPARIN 120 MG/0.8 ML SYRINGE SUBCUT STA (13:14)
[2018-02-03] MEDS ORDERED: NITROGLYCERIN SL 0.4 MG TABLET SL PRN (13:15)
[2018-02-03 14:07] LABS: Troponin I < 0.015 NG/ML (0.00-0.045)
[2018-02-03 18:34] LABS: ABG Base Excess -0.2 MMOL/L (-2.5-2.5); ABG HCO3 23.8 MMOL/L (20-26); ABG PCO2 36.8 MM HG (35-48); ABG PH 7.428 (7.35-7.45); ABG PO2 81.1 MM HG (80-95); ABG TCO2 24.9 MMOL/L (23-27); Allen Test Positive
[2018-02-03 19:26] LABS: Calcium 8.2 MG/DL (8.5-10.1); Osmolality,Calculated 285.1 MOS/KG (273-304); Potassium 3.6 MMOL/L (3.5-5.1)
[2018-02-03 19:32] LABS: Troponin I 0.061 NG/ML (0.00-0.045)
[2018-02-03] MEDS: SOTALOL 80 MG TABLET PO SCH (21:49)
[2018-02-03] MEDS: CARVEDILOL 6.25 MG TABLET PO SCH (21:49)
[2018-02-04 04:07] LABS: Basophils # 0.1 10*3/uL (0.0-0.2); Basophils % 0.6 % (0.0-0.8); Eosinophils # 0.4 10*3/uL (0.0-0.87); Eosinophils % 4.7 % (0.00-10.9); Hematocrit 41.2 VOL% (42.0-52.0); Hemoglobin 13.6 GM/DL (14.0-18.0); Immature Granulocytes % 0.4 %; Immature Granulocytes Absolute 0.04 #; Lymphocytes # 3.2 10*3/uL (1.4-4.0); Lymphocytes % 33.9 % (21.2-54.2); Mean Corpuscular Hemoglobin 30 PG (27-34); Mean Platelet Volume 11.5 FL (9.6-12.0); Monocytes # 0.7 10*3/uL (0.11-0.8); Monocytes % 7.1 % (1.7-12.7); Neutrophils % 53.3 % (38.7-73.9); Platelet Count 217 T/CUMM (130-400); Red Blood Count 4.58 MC/CUMM (3.8-5.5); Red Cell Distribution Width 13.5 % (9.3-17.3); White Blood Count 9.4 T/CUMM (4-12)
[2018-02-04 04:42] LABS: Calcium 8.3 MG/DL (8.5-10.1); Potassium 3.6 MMOL/L (3.5-5.1); Risk Ratio 2.64; VLDL CHOLESTEROL 32.4 MG/DL
[2018-02-04] MEDS ORDERED: LEVOTHYROXINE 25 MCG TABLET PO SCH (06:30)
[2018-02-04] MEDS ORDERED: ASPIRIN EC 81 MG TABLET PO SCH (09:00)
[2018-02-04] MEDS ORDERED: PANTOPRAZOLE 40 MG TABLET PO SCH (09:00)
[2018-02-04] MEDS: CARVEDILOL 6.25 MG TABLET PO SCH (09:43)
[2018-02-04] MEDS: SOTALOL 80 MG TABLET PO SCH (09:44)
[2018-02-04] MEDS: SODIUM CHLORIDE 0.9% 1,000 ML IV SCH ×2 (09:45→17:23)
[2018-02-04 11:14] LABS: Apearance,Urine CLEAR (Clear); Bacteria,Urine Occasional /HPF (Few); Bilirubin,Urine Negative (Negative); Blood, Urine Negative (Negative); Glucose,Urine (UA) Negative (Negative); Ketones,Urine Negative (Negative); Mucus,Urine Occasional /LPF (Occasional); Nitrite,Urine Negative (Negative); Protein,Urine Negative; RBC,Urine <1 /HPF (0-4); Squamous Epithelial Cell,Urine Occasional /HPF (0-10); Urine Color Yellow (Yellow); Urine Specific Gravity 1.011 (1.001-1.035); Urine Urobilinogen < 2.0 EU/DL (0.2-1.0); WBC,Urine 1 /HPF (0-6)
[2018-02-04] MEDS ORDERED: DIAZEPAM 5 MG TABLET PO ONE (12:00)
[2018-02-04] MEDS ORDERED: diphenhydrAMINE CAP 25 MG CAPSULE PO ONE (12:00)
[2018-02-04] MEDS ORDERED: HEPARIN/NACL 0.9% 2 UNITS/ML 1,000 ML IV ONE (12:06)
[2018-02-04] MEDS ORDERED: TICAGRELOR 90 MG TABLET ONE (12:54)
[2018-02-04] MEDS ORDERED: VERAPAMIL 5 MG/2 ML VIAL ONE (13:03)
[2018-02-04] MEDS ORDERED: NITROGLYCERIN DRIP 50 MG/250 ML BOTTLE IV ONE (13:03)
[2018-02-04] MEDS ORDERED: MIDAZOLAM 2 MG/2 ML VIAL ONE (13:06)
[2018-02-04] MEDS ORDERED: fentaNYL 100 MCG/2 ML VIAL ONE (13:06)
[2018-02-04] MEDS ORDERED: ENOXAPARIN 60 MG/0.6 ML SYRINGE ONE (13:09)
[2018-02-04] MEDS ORDERED: ADENOSINE 90 MG/30 ML VIAL IV ONE (13:32)
[2018-02-04] MEDS ORDERED: ALBUTEROL 2.5 MG/3 ML NEB RESP TX PRN (13:53)
[2018-02-04 17:27] VITALS: BP 133/75
[2018-02-05] MEDS ORDERED: SIMVASTATIN 40 MG TABLET PO SCH (09:00)
== END 2018-02-04 19:25 | disposition home or self-care (01) ==
LOC: N.ED 11:52 → N.EDINP 11:52 → N.2W 14:35 → N.TELES 16:11
PROVIDERS: ADMIT Internal Medicine Cardiovascular Disease; ATTEND Internal Medicine Cardiovascular Disease
PROC: CLCCHCL (ICD-10-PCS; 2018-02-04 13:15)

== ENCOUNTER 2018-04-25 15:31 | Inpatient (IN) ==
[2018-04-25] MEDS ORDERED: diphenhydrAMINE CAP 25 MG CAPSULE PO PRN (15:37)
[2018-04-25] MEDS ORDERED: ONDANSETRON 4 MG/2 ML VIAL IV PRN (15:37)
[2018-04-25] MEDS ORDERED: ACETAMINOPHEN 325 MG TABLET PO PRN (15:37)
[2018-04-25] MEDS ORDERED: ZALEPLON 5 MG CAPSULE PO PRN (15:37)
[2018-04-25] MEDS: METOPROLOL TARTRATE 5 MG/5 ML VIAL IV SCH ×3 (18:51→19:03)
[2018-04-25] MEDS: SODIUM CHLORIDE 0.9% 1,000 ML IV SCH (19:02)
[2018-04-25] MEDS: METOPROLOL TARTRATE 50 MG TABLET PO SCH (19:20)
[2018-04-25 19:21] LABS: Basophils % 0.3 % (0.0-0.8); Eosinophils # 0.2 10*3/uL (0.0-0.87); Hematocrit 41.3 VOL% (42.0-52.0); Hemoglobin 13.3 GM/DL (14.0-18.0); Immature Granulocytes % 0.6 %; Immature Granulocytes Absolute 0.06 #; Lymphocytes # 3.4 10*3/uL (1.4-4.0); Lymphocytes % 32.3 % (21.2-54.2); Mean Corpuscular HGB Conc 32.2 GM/DL (32-36); Mean Corpuscular Hemoglobin 29 PG (27-34); Mean Corpuscular Volume 91.4 FL (87-102); Mean Platelet Volume 11.4 FL (9.6-12.0); Monocytes % 9.3 % (1.7-12.7); Neutrophils # 5.9 10*3/uL (1.4-7.4); Neutrophils % 55.5 % (38.7-73.9); Platelet Count 275 T/CUMM (130-400); Red Blood Count 4.52 MC/CUMM (3.8-5.5); Red Cell Distribution Width 13.2 % (9.3-17.3); White Blood Count 10.7 T/CUMM (4-12)
[2018-04-25] MEDS ORDERED: DILTIAZEM CD 120 MG CAPSULE PO SCH (19:30)
[2018-04-25 19:50] LABS: Albumin 3.3 G/DL (3.4-5.0); Bilirubin,Direct 0.21 MG/DL (0.0-0.20); Bilirubin,Total 1.2 MG/DL (0.2-1.0); Total Protein 6.6 G/DL (6.4-8.3)
[2018-04-25 19:58] LABS: Thyroid Stimulating Hormone 2.36 uIU/ml (0.358-3.74)
[2018-04-25 20:06] LABS: Calcium 8.8 MG/DL (8.5-10.1); Osmolality,Calculated 278.5 MOS/KG (273-304); Potassium 4.3 MMOL/L (3.5-5.1)
[2018-04-25] MEDS: ALBUTEROL 2.5 MG/3 ML NEB RESP TX SCH (20:23)
[2018-04-25] MEDS ORDERED: DILTIAZEM 25 MG/5 ML VIAL IV ONE (20:58)
[2018-04-25] MEDS ORDERED: dilTIAZem Drip 125 MG/125 ML PREMIX IV SCH (21:00)
[2018-04-25] MEDS: SIMVASTATIN 40 MG TABLET PO SCH (22:42)
[2018-04-25] MEDS: APIXABAN 5 MG TABLET PO SCH (22:42)
[2018-04-25] MEDS: BENZONATATE 100 MG CAPSULE PO SCH (22:42)
[2018-04-25] MEDS: ASCORBIC ACID 500 MG TABLET PO SCH (22:42)
[2018-04-25] MEDS: DOCUSATE SODIUM 100 MG CAPSULE PO SCH (22:42)
[2018-04-25] MEDS ORDERED: SODIUM CHLORIDE 0.9% 500 ML IV ONE (23:44)
[2018-04-26] MEDS: ALBUTEROL 2.5 MG/3 ML NEB RESP TX SCH ×4 (00:27→18:54)
[2018-04-26] MEDS: SODIUM CHLORIDE 0.9% 1,000 ML IV SCH ×4 (03:22→17:39)
[2018-04-26 05:54] LABS: Basophils % 0.4 % (0.0-0.8); Eosinophils # 0.3 10*3/uL (0.0-0.87); Eosinophils % 2.8 % (0.00-10.9); Hematocrit 43.8 VOL% (42.0-52.0); Hemoglobin 14.1 GM/DL (14.0-18.0); Immature Granulocytes % 0.5 %; Immature Granulocytes Absolute 0.05 #; Lymphocytes # 3.2 10*3/uL (1.4-4.0); Lymphocytes % 32.2 % (21.2-54.2); Mean Corpuscular HGB Conc 32.2 GM/DL (32-36); Mean Corpuscular Hemoglobin 29 PG (27-34); Mean Corpuscular Volume 90.7 FL (87-102); Mean Platelet Volume 11.4 FL (9.6-12.0); Monocytes # 0.8 10*3/uL (0.11-0.8); Monocytes % 7.9 % (1.7-12.7); Neutrophils # 5.7 10*3/uL (1.4-7.4); Neutrophils % 56.2 % (38.7-73.9); Platelet Count 241 T/CUMM (130-400); Red Blood Count 4.83 MC/CUMM (3.8-5.5); Red Cell Distribution Width 13.5 % (9.3-17.3); White Blood Count 10.1 T/CUMM (4-12)
[2018-04-26 06:04] LABS: Calcium 8.1 MG/DL (8.5-10.1); Osmolality,Calculated 281.3 MOS/KG (273-304)
[2018-04-26] MEDS: LEVOTHYROXINE 25 MCG TABLET PO SCH (06:44)
[2018-04-26] MEDS ORDERED: DILTIAZEM CD 240 MG CAPSULE PO SCH (09:00)
[2018-04-26] MEDS: BENZONATATE 100 MG CAPSULE PO SCH ×3 (09:08→21:33)
[2018-04-26] MEDS: CYANOCOBALAMIN 500 MCG TABLET PO SCH (09:08)
[2018-04-26] MEDS: ASCORBIC ACID 500 MG TABLET PO SCH ×2 (09:08→21:33)
[2018-04-26] MEDS: APIXABAN 5 MG TABLET PO SCH ×2 (09:09→21:33)
[2018-04-26] MEDS: DOCUSATE SODIUM 100 MG CAPSULE PO SCH ×2 (09:09→21:33)
[2018-04-26] MEDS: METOPROLOL TARTRATE 50 MG TABLET PO SCH ×2 (09:09→21:33)
[2018-04-26] MEDS: PANTOPRAZOLE 40 MG TABLET PO SCH (10:32)
[2018-04-26] MEDS: AMIODARONE 200 MG TABLET PO SCH ×2 (11:07→21:33)
[2018-04-26 16:53] LABS: Apearance,Urine CLEAR (Clear); Bilirubin,Urine Negative (Negative); Blood, Urine Negative (Negative); Glucose,Urine (UA) Negative (Negative); Ketones,Urine Negative (Negative); Mucus,Urine Many /LPF (Occasional); Nitrite,Urine Negative (Negative); Protein,Urine Negative; RBC,Urine 1 /HPF (0-4); Squamous Epithelial Cell,Urine Occasional /HPF (0-10); Urine Color Yellow (Yellow); Urine Specific Gravity 1.021 (1.001-1.035); Urine Urobilinogen < 2.0 EU/DL (0.2-1.0); WBC,Urine 2 /HPF (0-6)
[2018-04-26] MEDS: HYDROcodone/CHLORPHENIRAMINE ER 5 ML UDCUP PO SCH (17:39)
[2018-04-26] MEDS: LEVOFLOXACIN 500 MG TABLET PO SCH (17:39)
[2018-04-26] MEDS: SIMVASTATIN 40 MG TABLET PO SCH (21:33)
[2018-04-27] MEDS: ALBUTEROL 2.5 MG/3 ML NEB RESP TX SCH ×4 (00:02→20:19)
[2018-04-27 05:29] LABS: Basophils # 0.1 10*3/uL (0.0-0.2); Basophils % 0.5 % (0.0-0.8); Eosinophils # 0.5 10*3/uL (0.0-0.87); Eosinophils % 5.5 % (0.00-10.9); Hematocrit 41.1 VOL% (42.0-52.0); Immature Granulocytes % 0.4 %; Immature Granulocytes Absolute 0.04 #; Lymphocytes # 2.4 10*3/uL (1.4-4.0); Lymphocytes % 26.1 % (21.2-54.2); Mean Corpuscular HGB Conc 31.6 GM/DL (32-36); Mean Corpuscular Hemoglobin 29 PG (27-34); Mean Corpuscular Volume 91.7 FL (87-102); Mean Platelet Volume 11.5 FL (9.6-12.0); Monocytes # 0.8 10*3/uL (0.11-0.8); Monocytes % 8.3 % (1.7-12.7); Neutrophils # 5.4 10*3/uL (1.4-7.4); Neutrophils % 59.2 % (38.7-73.9); Platelet Count 204 T/CUMM (130-400); Red Blood Count 4.48 MC/CUMM (3.8-5.5); Red Cell Distribution Width 13.6 % (9.3-17.3); White Blood Count 9.1 T/CUMM (4-12)
[2018-04-27] MEDS: SODIUM CHLORIDE 0.9% 1,000 ML IV SCH ×2 (05:55→09:48)
[2018-04-27 06:06] LABS: Calcium 7.6 MG/DL (8.5-10.1); Potassium 4.1 MMOL/L (3.5-5.1)
[2018-04-27] MEDS ORDERED: PROPOFOL 200 MG/20 ML VIAL IV ONE (08:31)
[2018-04-27] MEDS: LEVOTHYROXINE 25 MCG TABLET PO SCH (08:51)
[2018-04-27] MEDS: DOCUSATE SODIUM 100 MG CAPSULE PO SCH ×2 (09:42→21:29)
[2018-04-27] MEDS: BENZONATATE 100 MG CAPSULE PO SCH ×3 (09:49→21:31)
[2018-04-27] MEDS: LEVOFLOXACIN 500 MG TABLET PO SCH (09:50)
[2018-04-27] MEDS: APIXABAN 5 MG TABLET PO SCH ×2 (09:50→21:29)
[2018-04-27] MEDS: AMIODARONE 200 MG TABLET PO SCH ×2 (09:50→21:29)
[2018-04-27] MEDS: ASCORBIC ACID 500 MG TABLET PO SCH ×2 (09:50→21:29)
[2018-04-27] MEDS: CYANOCOBALAMIN 500 MCG TABLET PO SCH (09:50)
[2018-04-27] MEDS: PANTOPRAZOLE 40 MG TABLET PO SCH (09:51)
[2018-04-27] MEDS: HYDROcodone/CHLORPHENIRAMINE ER 5 ML UDCUP PO SCH (10:24)
[2018-04-27] MEDS: SIMVASTATIN 40 MG TABLET PO SCH (21:36)
[2018-04-28] MEDS: ALBUTEROL 2.5 MG/3 ML NEB RESP TX SCH ×2 (01:43→07:42)
[2018-04-28 05:27] LABS: Basophils % 0.5 % (0.0-0.8); Eosinophils # 0.5 10*3/uL (0.0-0.87); Hematocrit 38.3 VOL% (42.0-52.0); Hemoglobin 12.3 GM/DL (14.0-18.0); Immature Granulocytes % 0.5 %; Immature Granulocytes Absolute 0.04 #; Lymphocytes # 1.9 10*3/uL (1.4-4.0); Lymphocytes % 23.3 % (21.2-54.2); Mean Corpuscular HGB Conc 32.1 GM/DL (32-36); Mean Corpuscular Hemoglobin 30 PG (27-34); Mean Corpuscular Volume 91.8 FL (87-102); Mean Platelet Volume 11.1 FL (9.6-12.0); Monocytes # 0.7 10*3/uL (0.11-0.8); Monocytes % 8.8 % (1.7-12.7); Neutrophils # 4.9 10*3/uL (1.4-7.4); Neutrophils % 60.9 % (38.7-73.9); Platelet Count 179 T/CUMM (130-400); Red Blood Count 4.17 MC/CUMM (3.8-5.5); Red Cell Distribution Width 13.4 % (9.3-17.3)
[2018-04-28 05:53] LABS: Calcium 8.1 MG/DL (8.5-10.1); Osmolality,Calculated 279.3 MOS/KG (273-304); Potassium 3.7 MMOL/L (3.5-5.1)
[2018-04-28] MEDS: LEVOTHYROXINE 25 MCG TABLET PO SCH (06:08)
[2018-04-28] MEDS: DOCUSATE SODIUM 100 MG CAPSULE PO SCH (08:47)
[2018-04-28] MEDS: CYANOCOBALAMIN 500 MCG TABLET PO SCH (08:48)
[2018-04-28] MEDS: PANTOPRAZOLE 40 MG TABLET PO SCH (08:48)
[2018-04-28] MEDS: BENZONATATE 100 MG CAPSULE PO SCH (08:49)
[2018-04-28] MEDS: APIXABAN 5 MG TABLET PO SCH (08:49)
[2018-04-28] MEDS: LEVOFLOXACIN 500 MG TABLET PO SCH (08:49)
[2018-04-28] MEDS: AMIODARONE 200 MG TABLET PO SCH (08:50)
[2018-04-28] MEDS: ASCORBIC ACID 500 MG TABLET PO SCH (08:52)
[2018-04-28] MEDS: HYDROcodone/CHLORPHENIRAMINE ER 5 ML UDCUP PO SCH (08:52)
[2018-04-28 12:23] VITALS: BP 123/78
== END 2018-04-28 13:47 | disposition home or self-care (01) | DRG 309 ==
LOC: N.TELEN 16:01
PROVIDERS: ADMIT Internal Medicine Cardiovascular Disease; ATTEND Internal Medicine Cardiovascular Disease

== ENCOUNTER 2020-08-12 16:20 | Observation (INO) ==
[2020-08-12 17:11] LABS: Basophils # 0.1 10*3/uL (0.0-0.2); Basophils % 0.7 % (0.0-0.8); Eosinophils # 0.3 10*3/uL (0.0-0.87); Eosinophils % 3.3 % (0.00-10.9); Hematocrit 41.6 VOL% (42.0-52.0); Hemoglobin 12.7 GM/DL (14.0-18.0); Immature Granulocytes % 0.2 %; Immature Granulocytes Absolute 0.02 #; Lymphocytes # 2.2 10*3/uL (1.4-4.0); Lymphocytes % 25.7 % (21.2-54.2); Mean Corpuscular HGB Conc 30.5 GM/DL (32-36); Mean Corpuscular Volume 88.1 FL (87-102); Mean Platelet Volume 10.8 FL (9.6-12.0); Monocytes % 8.9 % (1.7-12.7); Neutrophils % 61.2 % (38.7-73.9); Platelet Count 300 T/CUMM (130-400); Red Blood Count 4.72 MC/CUMM (3.8-5.5); Red Cell Distribution Width 14.6 % (9.3-17.3); White Blood Count 8.4 T/CUMM (4-12)
[2020-08-12 17:19] LABS: INR 1.1; PT Patient Result 11.6 SECS (9.8-11.9); Partial Thromboplastin Time 28.5 SECS (23.9-33.8)
[2020-08-12 17:24] LABS: Alanine Aminotransferase 10 U/L (16-61); Alkaline Phosphatase 76 U/L (45-117); Aspartate Amino Transferase 16 U/L (0-37); Blood Urea Nitrogen 15 MG/DL (7-18); Calcium 8.6 MG/DL (8.5-10.1); Carbon Dioxide 26 MMOL/L (21-32); Estimated Glom Filtration Rate 103 ML/MIN; Glucose 96 MG/DL (74-106); Osmolality,Calculated 281.3 MOS/KG (273-304); Potassium 3.9 MMOL/L (3.5-5.1); Sodium 141 MMOL/L (136-145); Total Protein 7.2 G/DL (6.4-8.2); Troponin I < 0.015 NG/ML (0.00-0.045)
[2020-08-12] MEDS ORDERED: ALBUTEROL/IPRATROPIUM 3 ML NEB RESP TX STA (17:42)
[2020-08-12] MEDS ORDERED: methylPREDNISolone SOD SUC 125 MG/2 ML VIAL IV STA (17:42)
[2020-08-12] MEDS ORDERED: DEXTROSE 50% 25 GM/50 ML VIAL IV PRN (20:52)
[2020-08-12] MEDS ORDERED: GLUCAGON 1 MG VIAL IM PRN (20:52)
[2020-08-12] MEDS ORDERED: ONDANSETRON 4 MG/2 ML VIAL IV PRN (20:52)
[2020-08-12] MEDS ORDERED: BENZONATATE 100 MG CAPSULE PO PRN (21:49)
[2020-08-12] MEDS ORDERED: ALBUTEROL 0.63 MG/3 ML NEB RESP TX PRN (21:59)
[2020-08-12] MEDS: ACETAMINOPHEN 500 MG TABLET PO SCH (23:56)
[2020-08-12] MEDS: SIMVASTATIN 40 MG TABLET PO SCH (23:56)
[2020-08-12] MEDS: APIXABAN 5 MG TABLET PO SCH (23:56)
[2020-08-12] MEDS: BUDESONIDE/FORMOTEROL 160-4.5 INHALER 6 GM INH SCH (23:57)
[2020-08-12] MEDS: DOXYCYCLINE HYCLATE INJ 100 MG in SODIUM CHLORIDE 0.9% 100 ML IV SCH (23:57)
[2020-08-12] MEDS: cefTRIAXone 1,000 MG in SYRINGE 1 EACH IV SCH (23:57)
[2020-08-13 05:54] LABS: Basophils % 0.2 % (0.0-0.8); Hematocrit 39.2 VOL% (42.0-52.0); Hemoglobin 12.3 GM/DL (14.0-18.0); Immature Granulocytes % 0.3 %; Immature Granulocytes Absolute 0.02 #; Lymphocytes % 16.5 % (21.2-54.2); Mean Corpuscular HGB Conc 31.4 GM/DL (32-36); Mean Corpuscular Volume 85.8 FL (87-102); Mean Platelet Volume 11.2 FL (9.6-12.0); Platelet Count 272 T/CUMM (130-400); Red Blood Count 4.57 MC/CUMM (3.8-5.5); Red Cell Distribution Width 14.6 % (9.3-17.3); White Blood Count 6.3 T/CUMM (4-12)
[2020-08-13 06:15] LABS: Bilirubin,Total 0.9 MG/DL (0.2-1.0); Calcium 8.5 MG/DL (8.5-10.1); Osmolality,Calculated 282.4 MOS/KG (273-304); Potassium 4.1 MMOL/L (3.5-5.1); Thyroid Stimulating Hormone 1.16 uIU/ml (0.358-3.74); Total Protein 7.2 G/DL (6.4-8.2)
[2020-08-13 06:54] LABS: Band Neutrophils 1 % (0-10); Lymphocytes 23 % (20-55); Segmented Neutrophils 75 % (50-85); Total Cells Counted 100
[2020-08-13 06:56] LABS: Anisocytosis Slight; Hypochromasia Slight; Macrocytosis Slight; Platelet Estimate Normal
[2020-08-13] MEDS: AMIODARONE 200 MG TABLET PO SCH (08:18)
[2020-08-13] MEDS: APIXABAN 5 MG TABLET PO SCH ×2 (08:18→21:08)
[2020-08-13] MEDS: CYANOCOBALAMIN 500 MCG TABLET PO SCH (08:18)
[2020-08-13] MEDS: ASPIRIN EC 81 MG TABLET PO SCH (08:18)
[2020-08-13] MEDS: LOSARTAN 50 MG TABLET PO SCH (08:18)
[2020-08-13] MEDS ORDERED: predniSONE 20 MG TABLET PO SCH (09:00)
[2020-08-13] MEDS: methylPREDNISolone SOD SUC 40 MG/1 ML VIAL IV SCH ×2 (09:25→17:44)
[2020-08-13] MEDS: DOXYCYCLINE HYCLATE INJ 100 MG in SODIUM CHLORIDE 0.9% 100 ML IV SCH ×2 (09:25→21:08)
[2020-08-13] MEDS: ALBUTEROL/IPRATROPIUM 3 ML NEB RESP TX SCH ×2 (14:12→19:50)
[2020-08-13] MEDS: guaiFENesin/DM ER 600-30 MG TABLET PO SCH ×2 (15:00→21:07)
[2020-08-13] MEDS: BUDESONIDE/FORMOTEROL 160-4.5 INHALER 6 GM INH SCH ×2 (17:44→21:07)
[2020-08-13] MEDS: SIMVASTATIN 40 MG TABLET PO SCH (21:07)
[2020-08-13] MEDS: ACETAMINOPHEN 500 MG TABLET PO SCH (21:07)
[2020-08-13] MEDS: cefTRIAXone 1,000 MG in SYRINGE 1 EACH IV SCH (21:55)
[2020-08-14] MEDS: methylPREDNISolone SOD SUC 40 MG/1 ML VIAL IV SCH ×2 (00:43→08:56)
[2020-08-14] MEDS: ALBUTEROL/IPRATROPIUM 3 ML NEB RESP TX SCH ×3 (01:02→12:35)
[2020-08-14] MEDS: ASPIRIN EC 81 MG TABLET PO SCH (08:54)
[2020-08-14] MEDS: AMIODARONE 200 MG TABLET PO SCH (08:55)
[2020-08-14] MEDS: APIXABAN 5 MG TABLET PO SCH (08:55)
[2020-08-14] MEDS: CYANOCOBALAMIN 500 MCG TABLET PO SCH (08:55)
[2020-08-14] MEDS: LOSARTAN 50 MG TABLET PO SCH (08:55)
[2020-08-14] MEDS: guaiFENesin/DM ER 600-30 MG TABLET PO SCH (08:55)
[2020-08-14] MEDS: BUDESONIDE/FORMOTEROL 160-4.5 INHALER 6 GM INH SCH (08:56)
[2020-08-14] MEDS: DOXYCYCLINE HYCLATE INJ 100 MG in SODIUM CHLORIDE 0.9% 100 ML IV SCH (09:00)
[2020-08-14 11:32] VITALS: BP 131/67
[2020-08-14] MEDS ORDERED: MONTELUKAST 10 MG TABLET PO SCH (21:00)
== END 2020-08-14 14:20 | disposition home or self-care (01) ==
LOC: EDUNIT# → EDBD → N.EDINP 16:20 → N.ED 16:20 → N.2E 21:49
PROVIDERS: ADMIT Hospitalist; ATTEND Hospitalist

== ENCOUNTER 2021-07-24 12:37 | Inpatient (IN) ==
[2021-07-24] MEDS ORDERED: MAGNESIUM SULF RIDER 2 GM/50 ML PREMIX IV PRN (12:47)
[2021-07-24] MEDS ORDERED: ZALEPLON 5 MG CAPSULE PO PRN (12:47)
[2021-07-24] MEDS ORDERED: ALUMINUM/MAGNES/SIMETH MAX STR 30 ML UDCUP PO PRN (12:47)
[2021-07-24] MEDS ORDERED: diphenhydrAMINE CAP 25 MG CAPSULE PO PRN (12:47)
[2021-07-24] MEDS ORDERED: MAGNESIUM SULF RIDER 4 GM/100 ML PREMIX IV PRN (12:47)
[2021-07-24] MEDS ORDERED: ONDANSETRON 4 MG/2 ML VIAL IV PRN (12:47)
[2021-07-24] MEDS ORDERED: hydrALAZINE 20 MG/1 ML VIAL IV PRN (12:47)
[2021-07-24] MEDS ORDERED: DILTIAZEM 50 MG/10 ML VIAL IV ONE (12:50)
[2021-07-24] MEDS ORDERED: predniSONE 5 MG TABLET PO SCH (12:52)
[2021-07-24] MEDS ORDERED: MONTELUKAST 10 MG TABLET PO SCH (12:52)
[2021-07-24] MEDS ORDERED: MORPHINE 4 MG/1 ML VIAL IV PRN (12:54)
[2021-07-24] MEDS: DILTIAZEM INJ 100 MG in SODIUM CHLORIDE 0.9% 100 ML IV SCH ×2 (14:54→22:52)
[2021-07-24] MEDS ORDERED: FERROUS SULFATE 325 MG TABLET PO SCH (15:00)
[2021-07-24 15:34] LABS: Basophils # 0.1 10*3/uL (0.0-0.2); Basophils % 0.3 % (0.0-0.8); Eosinophils % 0.1 % (0.00-10.9); Hematocrit 48.9 VOL% (42.0-52.0); Hemoglobin 13.9 GM/DL (14.0-18.0); Immature Granulocytes Absolute 0.18 #; Lymphocytes # 3.2 10*3/uL (1.4-4.0); Lymphocytes % 18.3 % (21.2-54.2); Mean Corpuscular HGB Conc 28.4 GM/DL (32-36); Mean Corpuscular Volume 81.9 FL (87-102); Mean Platelet Volume 10.5 FL (9.6-12.0); Monocytes % 5.4 % (1.7-12.7); Neutrophils % 74.9 % (38.7-73.9); Platelet Count 404 T/CUMM (130-400); Red Blood Count 5.97 MC/CUMM (3.8-5.5); White Blood Count 17.4 T/CUMM (4-12)
[2021-07-24 16:43] LABS: Albumin 2.7 G/DL (3.4-5.0); Bilirubin,Total 0.6 MG/DL (0.20-1.00); Calcium 8.6 MG/DL (8.5-10.1); Osmolality,Calculated 277.7 MOS/KG (273-304); Potassium 4.2 MMOL/L (3.5-5.1); Risk Ratio 3.38; Total Protein 7.2 G/DL (6.4-8.2); VLDL Cholesterol 24.2 MG/DL
[2021-07-24] MEDS ORDERED: AZITHROMYCIN INJ 500 MG in SODIUM CHLORIDE 0.9% 250 ML IV SCH (17:00)
[2021-07-24] MEDS: ALBUTEROL/IPRATROPIUM 3 ML NEB RESP TX SCH ×2 (17:09→19:34)
[2021-07-24] MEDS ORDERED: FUROSEMIDE 40 MG/4 ML VIAL IV ONE (18:00)
[2021-07-24] MEDS ORDERED: cefTRIAXone 1,000 MG in SODIUM CHLORIDE 0.9% 100 ML IV SCH (18:00)
[2021-07-24] MEDS ORDERED: DIGOXIN 0.5 MG/2 ML AMP IV ONE (19:51)
[2021-07-24] MEDS: FERROUS SULFATE 325 MG TABLET PO SCH (20:05)
[2021-07-24] MEDS: MONTELUKAST 10 MG TABLET PO SCH (20:05)
[2021-07-24] MEDS: Budesonide-Glycopyr-Formoterol [Breztri Aerosphere] INH SCH (20:05)
[2021-07-24] MEDS: CHOLECALCIFEROL 1,000 UNIT TABLET PO SCH (20:05)
[2021-07-24] MEDS: ALBUTEROL 2.5 MG/3 ML NEB RESP TX SCH (20:21)
[2021-07-24] MEDS ORDERED: SODIUM CHLORIDE 0.9% 500 ML IV ONE (21:21)
[2021-07-25] MEDS: ALBUTEROL/IPRATROPIUM 3 ML NEB RESP TX SCH ×4 (00:20→19:53)
[2021-07-25 05:48] LABS: Albumin 2.5 G/DL (3.4-5.0); Bilirubin,Total 0.4 MG/DL (0.20-1.00); Calcium 8.6 MG/DL (8.5-10.1); Osmolality,Calculated 276.7 MOS/KG (273-304); Potassium 3.4 MMOL/L (3.5-5.1); Total Protein 6.7 G/DL (6.4-8.2)
[2021-07-25 06:25] LABS: Basophils # 0.1 10*3/uL (0.0-0.2); Basophils % 0.5 % (0.0-0.8); Eosinophils # 0.1 10*3/uL (0.0-0.87); Eosinophils % 0.6 % (0.00-10.9); Hemoglobin 13.7 GM/DL (14.0-18.0); Immature Granulocytes % 0.8 %; Immature Granulocytes Absolute 0.12 #; Lymphocytes # 3.6 10*3/uL (1.4-4.0); Lymphocytes % 25.4 % (21.2-54.2); Mean Corpuscular HGB Conc 28.3 GM/DL (32-36); Mean Corpuscular Volume 81.3 FL (87-102); Mean Platelet Volume 10.3 FL (9.6-12.0); Neutrophils % 64.7 % (38.7-73.9); Platelet Count 345 T/CUMM (130-400); Red Blood Count 5.95 MC/CUMM (3.8-5.5); White Blood Count 14.2 T/CUMM (4-12)
[2021-07-25 06:27] LABS: Hematocrit 48.4 VOL% (42.0-52.0)
[2021-07-25 06:35] LABS: Hypochromia 1+
[2021-07-25 06:36] LABS: Anisocytosis 1+; Microcytosis 1+; Ovalocytes Slight; Platelet Estimate Normal
[2021-07-25] MEDS: ALBUTEROL 2.5 MG/3 ML NEB RESP TX SCH ×4 (07:54→19:53)
[2021-07-25] MEDS ORDERED: predniSONE 5 MG TABLET PO SCH (09:00)
[2021-07-25] MEDS ORDERED: ASPIRIN EC 81 MG TABLET PO SCH (09:00)
[2021-07-25] MEDS ORDERED: PANTOPRAZOLE 40 MG TABLET PO SCH (09:00)
[2021-07-25] MEDS: POTASSIUM CHLORIDE 20 MEQ TABLET PO SCH (09:34)
[2021-07-25] MEDS: ASPIRIN EC 81 MG TABLET PO SCH (09:34)
[2021-07-25] MEDS: CYANOCOBALAMIN 500 MCG TABLET PO SCH (09:34)
[2021-07-25] MEDS: METOPROLOL SUCCINATE XL 50 MG TABLET PO SCH (09:34)
[2021-07-25] MEDS: FERROUS SULFATE 325 MG TABLET PO SCH ×2 (09:34→20:22)
[2021-07-25] MEDS: AZITHROMYCIN 250 MG TABLET PO SCH (09:34)
[2021-07-25] MEDS: predniSONE 20 MG TABLET PO SCH (09:34)
[2021-07-25] MEDS: APIXABAN 5 MG TABLET PO SCH ×2 (09:34→20:22)
[2021-07-25] MEDS: ASCORBIC ACID 500 MG TABLET PO SCH (09:34)
[2021-07-25] MEDS: PANTOPRAZOLE 40 MG TABLET PO SCH (09:34)
[2021-07-25] MEDS: DILTIAZEM CD 120 MG CAPSULE PO SCH (09:34)
[2021-07-25] MEDS: ZINC GLUCONATE 50 MG TABLET PO SCH (09:34)
[2021-07-25] MEDS: Budesonide-Glycopyr-Formoterol [Breztri Aerosphere] INH SCH ×2 (12:24→20:30)
[2021-07-25] MEDS: MONTELUKAST 10 MG TABLET PO SCH (20:22)
[2021-07-25] MEDS: ZALEPLON 5 MG CAPSULE PO SCH (20:22)
[2021-07-25] MEDS: CHOLECALCIFEROL 1,000 UNIT TABLET PO SCH (20:22)
[2021-07-26] MEDS: ALBUTEROL/IPRATROPIUM 3 ML NEB RESP TX SCH ×4 (00:24→19:10)
[2021-07-26 06:21] LABS: Potassium 3.9 MMOL/L (3.5-5.1)
[2021-07-26] MEDS: ALBUTEROL 2.5 MG/3 ML NEB RESP TX SCH ×4 (07:40→20:14)
[2021-07-26] MEDS: FERROUS SULFATE 325 MG TABLET PO SCH ×2 (08:16→20:46)
[2021-07-26] MEDS: ASCORBIC ACID 500 MG TABLET PO SCH (08:16)
[2021-07-26] MEDS: MULTIVITAMIN (CENTRUM) TABLET PO SCH (08:16)
[2021-07-26] MEDS: POTASSIUM CHLORIDE 20 MEQ TABLET PO SCH (08:16)
[2021-07-26] MEDS: ASPIRIN EC 81 MG TABLET PO SCH (08:16)
[2021-07-26] MEDS: AZITHROMYCIN 250 MG TABLET PO SCH (08:17)
[2021-07-26] MEDS: PANTOPRAZOLE 40 MG TABLET PO SCH (08:17)
[2021-07-26] MEDS: APIXABAN 5 MG TABLET PO SCH ×2 (08:17→20:46)
[2021-07-26] MEDS: CYANOCOBALAMIN 500 MCG TABLET PO SCH (08:17)
[2021-07-26] MEDS: ZINC GLUCONATE 50 MG TABLET PO SCH (08:17)
[2021-07-26] MEDS: predniSONE 20 MG TABLET PO SCH (08:17)
[2021-07-26] MEDS: DILTIAZEM CD 120 MG CAPSULE PO SCH (08:17)
[2021-07-26] MEDS: METOPROLOL SUCCINATE XL 50 MG TABLET PO SCH ×2 (08:17→20:46)
[2021-07-26] MEDS: Budesonide-Glycopyr-Formoterol [Breztri Aerosphere] INH SCH ×2 (09:05→20:51)
[2021-07-26] MEDS: MONTELUKAST 10 MG TABLET PO SCH (20:46)
[2021-07-26] MEDS: CHOLECALCIFEROL 1,000 UNIT TABLET PO SCH (20:46)
[2021-07-26] MEDS: ZALEPLON 5 MG CAPSULE PO SCH (20:46)
[2021-07-27] MEDS: ALBUTEROL/IPRATROPIUM 3 ML NEB RESP TX SCH ×4 (00:25→19:15)
[2021-07-27] MEDS: ALBUTEROL 2.5 MG/3 ML NEB RESP TX SCH (07:20)
[2021-07-27] MEDS: METOPROLOL SUCCINATE XL 50 MG TABLET PO SCH ×2 (08:05→20:55)
[2021-07-27] MEDS: POTASSIUM CHLORIDE 20 MEQ TABLET PO SCH (08:06)
[2021-07-27] MEDS: ASPIRIN EC 81 MG TABLET PO SCH (08:06)
[2021-07-27] MEDS: PANTOPRAZOLE 40 MG TABLET PO SCH (08:06)
[2021-07-27] MEDS: FERROUS SULFATE 325 MG TABLET PO SCH ×2 (08:06→20:55)
[2021-07-27] MEDS: CYANOCOBALAMIN 500 MCG TABLET PO SCH (08:06)
[2021-07-27] MEDS: predniSONE 20 MG TABLET PO SCH (08:06)
[2021-07-27] MEDS: MULTIVITAMIN (CENTRUM) TABLET PO SCH (08:06)
[2021-07-27] MEDS: AZITHROMYCIN 250 MG TABLET PO SCH (08:07)
[2021-07-27] MEDS: ASCORBIC ACID 500 MG TABLET PO SCH (08:07)
[2021-07-27] MEDS: APIXABAN 5 MG TABLET PO SCH ×2 (08:07→20:55)
[2021-07-27] MEDS: ZINC GLUCONATE 50 MG TABLET PO SCH (08:07)
[2021-07-27] MEDS: DILTIAZEM CD 120 MG CAPSULE PO SCH (08:08)
[2021-07-27] MEDS: Budesonide-Glycopyr-Formoterol [Breztri Aerosphere] INH SCH ×2 (08:13→20:55)
[2021-07-27] MEDS: ZALEPLON 5 MG CAPSULE PO SCH (20:55)
[2021-07-27] MEDS: MONTELUKAST 10 MG TABLET PO SCH (20:55)
[2021-07-27] MEDS: CHOLECALCIFEROL 1,000 UNIT TABLET PO SCH (20:55)
[2021-07-28] MEDS: ALBUTEROL/IPRATROPIUM 3 ML NEB RESP TX SCH ×3 (02:06→14:22)
[2021-07-28 07:07] LABS: Total Protein (Chem) 6.7 G/DL (6.4-8.3)
[2021-07-28 09:05] LABS: Basophils % 0.2 % (0.0-0.8); Eosinophils % 0.1 % (0.00-10.9); Hematocrit 49.4 VOL% (42.0-52.0); Immature Granulocytes % 0.7 %; Immature Granulocytes Absolute 0.14 #; Lymphocytes # 4.8 10*3/uL (1.4-4.0); Lymphocytes % 23.2 % (21.2-54.2); Mean Corpuscular HGB Conc 29.1 GM/DL (32-36); Mean Corpuscular Volume 82.3 FL (87-102); Mean Platelet Volume 10.1 FL (9.6-12.0); Monocytes % 6.9 % (1.7-12.7); Neutrophils % 68.9 % (38.7-73.9); Platelet Count 367 T/CUMM (130-400); White Blood Count 20.7 T/CUMM (4-12)
[2021-07-28 09:06] LABS: Hemoglobin 14.4 GM/DL (14.0-18.0)
[2021-07-28 09:11] LABS: Potassium 3.8 MMOL/L (3.5-5.1); Thyroid Stimulating Hormone 2.74 uIU/ml (0.358-3.74)
[2021-07-28 09:14] LABS: Lymphocytes 24 % (20-55); Platelet Estimate Adequate; Segmented Neutrophils 69 % (50-85); Total Cells Counted 100
[2021-07-28 09:15] LABS: Hypochromia Slight; Microcytosis Slight
[2021-07-28 09:28] LABS: Osmolality,Calculated 272.1 MOS/KG (273-304)
[2021-07-28 09:29] LABS: Albumin (SPE) 3.6 G/DL (3.2-5.3); Albumin (SPE) Rel % 54.2 %; Alpha 1 (SPE) 0.2 G/DL (0.1-0.4); Alpha 1 (SPE) Rel % 2.6 %; Alpha 2 (SPE) 0.9 G/DL (0.4-1.0); Alpha 2 (SPE) Rel % 13.1 %; Beta (SPE) 0.6 G/DL (0.5-1.1); Beta (SPE) Rel % 9.5 %; Gamma (SPE) 1.4 G/DL (0.7-1.7); Gamma (SPE) Rel % 20.6 %
[2021-07-28] MEDS: PANTOPRAZOLE 40 MG TABLET PO SCH (09:39)
[2021-07-28] MEDS: MULTIVITAMIN (CENTRUM) TABLET PO SCH (09:40)
[2021-07-28] MEDS: ASCORBIC ACID 500 MG TABLET PO SCH (09:40)
[2021-07-28] MEDS: ASPIRIN EC 81 MG TABLET PO SCH (09:40)
[2021-07-28] MEDS: CYANOCOBALAMIN 500 MCG TABLET PO SCH (09:40)
[2021-07-28] MEDS: DILTIAZEM CD 120 MG CAPSULE PO SCH (09:40)
[2021-07-28] MEDS: FERROUS SULFATE 325 MG TABLET PO SCH (09:41)
[2021-07-28] MEDS: METOPROLOL SUCCINATE XL 50 MG TABLET PO SCH (09:41)
[2021-07-28] MEDS: APIXABAN 5 MG TABLET PO SCH (09:41)
[2021-07-28] MEDS: POTASSIUM CHLORIDE 20 MEQ TABLET PO SCH (09:41)
[2021-07-28] MEDS: ZINC GLUCONATE 50 MG TABLET PO SCH (09:44)
[2021-07-28] MEDS ORDERED: predniSONE 5 MG TABLET PO SCH ×2 (10:30→13:00)
[2021-07-28] MEDS: Budesonide-Glycopyr-Formoterol [Breztri Aerosphere] INH SCH (10:52)
[2021-07-28] MEDS ORDERED: predniSONE 20 MG TABLET PO SCH (16:00)
[2021-07-28 16:02] VITALS: BP 106/55
[2021-07-28] MEDS ORDERED: APIXABAN 2.5 MG TABLET PO SCH (21:00)
== END 2021-07-28 18:30 | disposition home or self-care (01) | DRG 309 ==
LOC: N.TELEN
PROVIDERS: ADMIT Internal Medicine Cardiovascular Disease; ATTEND Internal Medicine Cardiovascular Disease